=== PATIENT | male | born 1970 | race African-American/Black ===

== ENCOUNTER 2022-01-04 10:00 | Emergency (ER) | payer OTHER ==
[2022-01-04] MEDS ORDERED: Dexameth. Sod Phosp. 10 MG/ML (CHEMO USE ONLY) ONE (10:16)
[2022-01-04] MEDS ORDERED: Ketorolac Tromethamine 30 MG/ML VIAL ONE (10:16)
== END 2022-01-04 10:32 | disposition home or self-care (01) ==
LOC: ERS 10:00
DX: J32.9 Chronic sinusitis, unspecified (principal); B96.89 Other specified bacterial agents as the cause of diseases classified elsewhere; I10 Essential (primary) hypertension
CPT/HCPCS: 96372; 99283; J1100; J1885

== ENCOUNTER 2023-02-22 18:36 | Emergency (ER) | payer OTHER | END 2023-02-22 20:04 | disposition home or self-care (01) | LOC: ERS 18:36 | DX: S93.411A Sprain of calcaneofibular ligament of right ankle, initial encounter (principal); I10 Essential (primary) hypertension; Z79.899 Other long term (current) drug therapy; X50.1XXA Overexertion from prolonged static or awkward postures, initial encounter; Y93.67 Activity, basketball ==